=== PATIENT | male | born 1950 | race Caucasian/White ===

== ENCOUNTER 2021-05-05 16:45 | Inpatient (IN) ==
[2021-05-05] MEDS ORDERED: Melatonin 3 MG TABLET PO PRN (21:37)
[2021-05-05] MEDS ORDERED: Naloxone 0.4 MG/ML INJ IVP PRN (21:37)
[2021-05-05] MEDS ORDERED: 0.9 % Sodium Chloride 1,000 ML IVC SCH (22:30)
[2021-05-05 23:30] LABS: BUN/Creatinine Ratio 14 (6-26); Blood Urea Nitrogen 16 mg/dL (8-23); Calcium 8.4 mg/dL (8.6-10.3); Carbon Dioxide 23 mEq/L (23-29); Chloride 98 mEq/L (98-107); Glucose 199 mg/dL (70-105); Osmolality,Calculated 273 (280-300); Sodium 128 mEq/L (136-145); eGFR For African Americans > 60 (> 60); eGFR For Non-African Americans > 60 (> 60)
[2021-05-06] MEDS ORDERED: Ondansetron 4 MG/2 ML VIAL IVP PRN (00:13)
[2021-05-06 04:45] LABS: Hematocrit 32.9 % (37.5-50.1); Hemoglobin 11.2 g/dL (12.9-16.9); Mean Corpuscular Hemoglobin 30.5 pg (28.0-33.3); Mean Corpuscular Volume 89.6 fL (83.0-100.0); Mean Platelet Volume 9.4 fL (9.4-12.4); Platelet Count 135 K/mcL (140-400); Red Blood Count 3.67 M/mcL (4.19-5.50); Red Cell Distribution Width 14.9 % (11.5-14.5); White Blood Count 13.9 K/mcL (4.3-11.1)
[2021-05-06 04:51] LABS: INR 1.3; Prothrombin Time 14.9 Seconds (9.4-12.1)
[2021-05-06 05:04] LABS: BUN/Creatinine Ratio 14 (6-26); Blood Urea Nitrogen 17 mg/dL (8-23); Calcium 8.6 mg/dL (8.6-10.3); Carbon Dioxide 22 mEq/L (23-29); Chloride 98 mEq/L (98-107); Glucose 164 mg/dL (70-105); Magnesium 1.8 mg/dL (1.6-2.6); Osmolality,Calculated 273 (280-300); Potassium 3.8 mEq/L (3.5-5.1); Sodium 129 mEq/L (136-145); eGFR For African Americans > 60 (> 60); eGFR For Non-African Americans 57 (> 60)
[2021-05-06] MEDS ORDERED: *HR* Dextrose 50 % in Water (Syg) 50 ML SYRINGE IVP PRN (05:35)
[2021-05-06] MEDS ORDERED: Dextrose Gel 15 GM/37.5 ML TUBE PO PRN ×2 (05:35)
[2021-05-06] MEDS ORDERED: D5% in Water 1,000 ML IVC PRN (05:35)
[2021-05-06] MEDS: cefTRIAXone 1,000 MG in Water for inj. (sterile) 10 ML IVP SCH (06:16)
[2021-05-06 06:17] LABS: Influenza A PCR Negative (Negative); Influenza B PCR Negative (Negative); Resp. Syncytial Virus PCR Negative (Negative)
[2021-05-06] MEDS: Azithromycin 500 MG in 0.9 % Sodium Chloride 250 ML IVPB SCH (06:17)
[2021-05-06 06:18] LABS: SARS-CoV-2 by PCR (In House) Negative (Negative)
[2021-05-06] MEDS: Ipratropium/Albuterol Neb 3 ML IH SCH ×4 (06:19→21:22)
[2021-05-06] MEDS: Sucralfate 1 GM TABLET PO SCH ×3 (08:37→10:30)
[2021-05-06] MEDS: Finasteride 5 MG TABLET PO SCH ×2 (08:37→10:23)
[2021-05-06] MEDS: Insulin LISPRO 300 UNITS/3 ML VIAL SUBQ SCH ×3 (08:37→17:31)
[2021-05-06] MEDS ORDERED: *HR* HYDROmorphone (PF) 1 MG/ML SYRINGE IVP ONE (10:11)
[2021-05-06] MEDS: GuaiFENesin Liq 200 MG/10 ML UDC PO SCH ×3 (12:33→19:40)
[2021-05-06] MEDS: *HR* LORazepam 0.5 MG TABLET PO SCH ×2 (15:48→19:39)
[2021-05-06] MEDS ORDERED: Loratadine 10 MG TABLET PO SCH (21:00)
[2021-05-07] MEDS: Insulin LISPRO 300 UNITS/3 ML VIAL SUBQ SCH ×5 (00:55→23:31)
[2021-05-07] MEDS: Ipratropium/Albuterol Neb 3 ML IH SCH ×4 (03:49→22:37)
[2021-05-07 05:08] LABS: Basophils % 0.4 %; Eosinophils # 0.4 K/mcL (0.0-0.6); Eosinophils % 3.7 %; Hematocrit 29.6 % (37.5-50.1); Hemoglobin 9.8 g/dL (12.9-16.9); Immature Granulocytes % 0.5 % (0-4); Lymphocytes # 0.9 K/mcL (0.6-4.6); Lymphocytes % 8.7 %; Mean Corpuscular HGB Conc 33.1 g/dL (31.6-35.5); Mean Corpuscular Hemoglobin 30.2 pg (28.0-33.3); Mean Corpuscular Volume 91.4 fL (83.0-100.0); Mean Platelet Volume 9.6 fL (9.4-12.4); Monocytes # 1.2 K/mcL (0.0-1.3); Monocytes % 11.7 %; Neutrophils # 7.9 K/mcL (1.6-8.9); Platelet Count 120 K/mcL (140-400); Red Blood Count 3.24 M/mcL (4.19-5.50); Red Cell Distribution Width 15.1 % (11.5-14.5); White Blood Count 10.6 K/mcL (4.3-11.1)
[2021-05-07 05:24] LABS: BUN/Creatinine Ratio 16 (6-26); Blood Urea Nitrogen 19 mg/dL (8-23); Calcium 8.4 mg/dL (8.6-10.3); Carbon Dioxide 23 mEq/L (23-29); Chloride 101 mEq/L (98-107); Glucose 122 mg/dL (70-105); Osmolality,Calculated 274 (280-300); Potassium 3.6 mEq/L (3.5-5.1); Sodium 130 mEq/L (136-145); eGFR For African Americans > 60 (> 60); eGFR For Non-African Americans 58 (> 60)
[2021-05-07] MEDS: cefTRIAXone 1,000 MG in Water for inj. (sterile) 10 ML IVP SCH (05:27)
[2021-05-07] MEDS: Azithromycin 500 MG in 0.9 % Sodium Chloride 250 ML IVPB SCH (05:28)
[2021-05-07] MEDS: Finasteride 5 MG TABLET PO SCH (08:53)
[2021-05-07] MEDS: *HR* LORazepam 0.5 MG TABLET PO SCH ×3 (08:53→21:40)
[2021-05-07] MEDS: GuaiFENesin Liq 200 MG/10 ML UDC PO SCH ×4 (08:54→21:40)
[2021-05-07] MEDS ORDERED: lisinopriL 5 MG TABLET PO SCH (09:00)
[2021-05-07] MEDS ORDERED: amLODIPine 5 MG TABLET PO SCH (09:00)
[2021-05-07] MEDS ORDERED: *HR* FentaNYL (PF) 100 MCG/2 ML VIAL ONE (10:50)
[2021-05-07] MEDS ORDERED: *HR* Propofol 200 MG/20 ML VIAL IVP ONE (10:51)
[2021-05-07] MEDS ORDERED: Lidocaine -MPF 2% 5 ML VIAL ONE (12:56)
[2021-05-07] MEDS ORDERED: Ondansetron 4 MG/2 ML VIAL ONE (12:56)
[2021-05-07] MEDS ORDERED: *HR* Succinylcholine 200 MG/10 ML VIAL IVP ONE (12:56)
[2021-05-07] MEDS ORDERED: Clindamycin 900 MG/50 ML 900 MG/50 ML IV.SOLN IVPB ONE (13:55)
[2021-05-07] MEDS ORDERED: Acetaminophen IV 1,000 MG/100 ML BAG IVPB ONE ×2 (13:56→14:16)
[2021-05-07] MEDS ORDERED: *HR* FentaNYL (PF) 100 MCG/2 ML VIAL IVP PRN ×2 (13:57→17:56)
[2021-05-07] MEDS ORDERED: EPHEDrine 50 MG/ML VIAL ONE (14:32)
[2021-05-07] MEDS ORDERED: Albuterol 2.5 MG/3 ML NEBULIZER ONE (15:42)
[2021-05-07] MEDS ORDERED: *HR* Dextrose 50 % in Water (Syg) 50 ML SYRINGE IVP PRN (17:56)
[2021-05-07] MEDS ORDERED: Dextrose Gel 15 GM/37.5 ML TUBE PO PRN ×2 (17:56)
[2021-05-07] MEDS ORDERED: D5% in Water 1,000 ML IVC PRN (17:56)
[2021-05-07] MEDS ORDERED: Naloxone 0.4 MG/ML INJ IVP PRN (17:56)
[2021-05-07] MEDS ORDERED: Clindamycin 900 MG/50 ML 900 MG/50 ML IV.SOLN IVPB SCH (21:00)
[2021-05-07] MEDS: Loratadine 10 MG TABLET PO SCH (21:39)
[2021-05-07] MEDS: Clindamycin 900 MG/50 ML 900 MG/50 ML IV.SOLN IVPB SCH (21:40)
[2021-05-07] MEDS ORDERED: 0.9 % Sodium Chloride 1,000 ML IVC ONE (22:10)
[2021-05-07] MEDS: Acetaminophen 325 MG TABLET PO PRN (22:36)
[2021-05-08 02:09] LABS: ABG Base Excess -2 mEq/L (-2 to 3); ABG HCO3 23 mEq/L (21-27); ABG Oxygen Saturation 87 % (95-98); ABG PCO2 37 mmHg (35-45); ABG PO2 52 mmHg (85-104); ABG TCO2 24 mEq/L (20-26)
[2021-05-08] MEDS: Ipratropium/Albuterol Neb 3 ML IH SCH ×4 (04:01→19:38)
[2021-05-08 05:09] LABS: Basophils % 0.3 %; Eosinophils # 0.3 K/mcL (0.0-0.6); Eosinophils % 2.8 %; Hematocrit 25.4 % (37.5-50.1); Immature Granulocytes % 0.5 % (0-4); Lymphocytes # 0.5 K/mcL (0.6-4.6); Lymphocytes % 5.8 %; Mean Corpuscular HGB Conc 32.3 g/dL (31.6-35.5); Mean Corpuscular Hemoglobin 29.7 pg (28.0-33.3); Mean Platelet Volume 9.8 fL (9.4-12.4); Monocytes # 1.1 K/mcL (0.0-1.3); Neutrophils # 6.8 K/mcL (1.6-8.9); Platelet Count 105 K/mcL (140-400); Red Blood Count 2.76 M/mcL (4.19-5.50); Red Cell Distribution Width 15.1 % (11.5-14.5); Segmented Neutrophils % 77.6 %; White Blood Count 8.8 K/mcL (4.3-11.1)
[2021-05-08 05:16] LABS: Hemoglobin 8.2 g/dL (12.9-16.9)
[2021-05-08 05:20] LABS: BUN/Creatinine Ratio 20 (6-26); Blood Urea Nitrogen 18 mg/dL (8-23); Carbon Dioxide 24 mEq/L (23-29); Chloride 101 mEq/L (98-107); Glucose 189 mg/dL (70-105); Osmolality,Calculated 279 (280-300); Potassium 3.6 mEq/L (3.5-5.1); Sodium 131 mEq/L (136-145); eGFR For African Americans > 60 (> 60); eGFR For Non-African Americans > 60 (> 60)
[2021-05-08] MEDS: Clindamycin 900 MG/50 ML 900 MG/50 ML IV.SOLN IVPB SCH (05:24)
[2021-05-08] MEDS: cefTRIAXone 1,000 MG in Water for inj. (sterile) 10 ML IVP SCH (05:27)
[2021-05-08] MEDS: Insulin LISPRO 300 UNITS/3 ML VIAL SUBQ SCH ×3 (05:57→16:54)
[2021-05-08] MEDS: Acetaminophen 325 MG TABLET PO PRN (07:14)
[2021-05-08] MEDS: GuaiFENesin Liq 200 MG/10 ML UDC PO SCH ×4 (08:12→20:54)
[2021-05-08] MEDS: Aspirin Enteric Coated 325 MG Tablet PO SCH (08:13)
[2021-05-08] MEDS: Finasteride 5 MG TABLET PO SCH (08:13)
[2021-05-08] MEDS: *HR* LORazepam 0.5 MG TABLET PO SCH ×2 (08:13→16:17)
[2021-05-08] MEDS ORDERED: amLODIPine 5 MG TABLET PO SCH (09:00)
[2021-05-08] MEDS ORDERED: Aspirin Enteric Coated 325 MG Tablet PO SCH (09:00)
[2021-05-08] MEDS ORDERED: lisinopriL 5 MG TABLET PO SCH (09:00)
[2021-05-08] MEDS ORDERED: metroNIDAZOLE 500 MG TABLET PO SCH (15:00)
[2021-05-08] MEDS ORDERED: Acetaminophen IV 1,000 MG/100 ML BAG IVPB ONE (15:02)
[2021-05-08] MEDS: MetroNIDAZOLE 500 MG/100 ML 500 MG/100 ML BAG IVPB SCH ×2 (16:22→23:35)
[2021-05-08] MEDS ORDERED: *HR* LORazepam 0.5 MG TABLET PO ONE (18:50)
[2021-05-08] MEDS: Melatonin 3 MG TABLET PO PRN (19:02)
[2021-05-08] MEDS: Loratadine 10 MG TABLET PO SCH (20:54)
[2021-05-08] MEDS ORDERED: Doxycycline 100 MG CAPSULE PO SCH (21:00)
[2021-05-09] MEDS: Insulin LISPRO 300 UNITS/3 ML VIAL SUBQ SCH ×4 (01:02→17:25)
[2021-05-09] MEDS: Ipratropium/Albuterol Neb 3 ML IH SCH ×4 (04:31→22:07)
[2021-05-09 04:58] LABS: Hematocrit 23.1 % (37.5-50.1); Hemoglobin 7.7 g/dL (12.9-16.9); Mean Corpuscular HGB Conc 33.3 g/dL (31.6-35.5); Mean Corpuscular Hemoglobin 30.2 pg (28.0-33.3); Mean Corpuscular Volume 90.6 fL (83.0-100.0); Mean Platelet Volume 10.1 fL (9.4-12.4); Platelet Count 122 K/mcL (140-400); Red Blood Count 2.55 M/mcL (4.19-5.50); White Blood Count 7.2 K/mcL (4.3-11.1)
[2021-05-09 05:17] LABS: BUN/Creatinine Ratio 19 (6-26); Blood Urea Nitrogen 16 mg/dL (8-23); Calcium 7.9 mg/dL (8.6-10.3); Carbon Dioxide 24 mEq/L (23-29); Chloride 101 mEq/L (98-107); Glucose 182 mg/dL (70-105); Osmolality,Calculated 278 (280-300); Potassium 3.5 mEq/L (3.5-5.1); Sodium 131 mEq/L (136-145); eGFR For African Americans > 60 (> 60); eGFR For Non-African Americans > 60 (> 60)
[2021-05-09] MEDS: Acetaminophen 325 MG TABLET PO PRN ×2 (06:43→15:47)
[2021-05-09] MEDS: cefTRIAXone 1,000 MG in Water for inj. (sterile) 10 ML IVP SCH (06:43)
[2021-05-09] MEDS ORDERED: Isovue-370 500 ML BOTTLE IVP ONE (07:30)
[2021-05-09] MEDS: Finasteride 5 MG TABLET PO SCH (07:46)
[2021-05-09] MEDS: Aspirin Enteric Coated 325 MG Tablet PO SCH (07:46)
[2021-05-09] MEDS: MetroNIDAZOLE 500 MG/100 ML 500 MG/100 ML BAG IVPB SCH ×2 (07:47→15:46)
[2021-05-09] MEDS: GuaiFENesin Liq 200 MG/10 ML UDC PO SCH ×4 (07:55→20:54)
[2021-05-09] MEDS: levoFLOXacin 750 MG/150 ML 750 MG/150 ML BAG IVPB SCH (08:09)
[2021-05-09] MEDS: Vancomycin 1,250 MG/262.5 ML IV.SOLN IVPB SCH (17:56)
[2021-05-09] MEDS: Loratadine 10 MG TABLET PO SCH (20:52)
[2021-05-09] MEDS: *HR* LORazepam 0.5 MG TABLET PO PRN (21:02)
[2021-05-09] MEDS: Melatonin 3 MG TABLET PO PRN (21:02)
[2021-05-10] MEDS: Insulin LISPRO 300 UNITS/3 ML VIAL SUBQ SCH ×4 (00:30→17:42)
[2021-05-10] MEDS: MetroNIDAZOLE 500 MG/100 ML 500 MG/100 ML BAG IVPB SCH ×2 (01:16→07:42)
[2021-05-10] MEDS: Ipratropium/Albuterol Neb 3 ML IH SCH ×4 (03:53→20:29)
[2021-05-10 04:58] LABS: Hematocrit 21.4 % (37.5-50.1); Hemoglobin 7.3 g/dL (12.9-16.9); Mean Corpuscular HGB Conc 34.1 g/dL (31.6-35.5); Mean Corpuscular Hemoglobin 30.8 pg (28.0-33.3); Mean Corpuscular Volume 90.3 fL (83.0-100.0); Mean Platelet Volume 10.1 fL (9.4-12.4); Platelet Count 118 K/mcL (140-400); Red Blood Count 2.37 M/mcL (4.19-5.50); Red Cell Distribution Width 14.9 % (11.5-14.5); White Blood Count 6.3 K/mcL (4.3-11.1)
[2021-05-10 05:17] LABS: BUN/Creatinine Ratio 18 (6-26); Blood Urea Nitrogen 13 mg/dL (8-23); Calcium 7.9 mg/dL (8.6-10.3); Carbon Dioxide 26 mEq/L (23-29); Chloride 100 mEq/L (98-107); Glucose 187 mg/dL (70-105); Osmolality,Calculated 277 (280-300); Potassium 3.3 mEq/L (3.5-5.1); Sodium 131 mEq/L (136-145); eGFR For African Americans > 60 (> 60); eGFR For Non-African Americans > 60 (> 60)
[2021-05-10] MEDS: Vancomycin 1,250 MG/262.5 ML IV.SOLN IVPB SCH ×2 (05:26→16:52)
[2021-05-10] MEDS: Finasteride 5 MG TABLET PO SCH (07:41)
[2021-05-10] MEDS: Aspirin Enteric Coated 325 MG Tablet PO SCH (07:41)
[2021-05-10] MEDS: GuaiFENesin Liq 200 MG/10 ML UDC PO SCH ×4 (07:41→20:03)
[2021-05-10] MEDS: levoFLOXacin 750 MG/150 ML 750 MG/150 ML BAG IVPB SCH (07:42)
[2021-05-10 09:57] LABS: Iron 13 mcg/dL (65-175)
[2021-05-10] MEDS: *HR* LORazepam 0.5 MG TABLET PO PRN ×2 (10:17→18:05)
[2021-05-10 10:33] LABS: Ferritin 235 ng/mL (20-250)
[2021-05-10] MEDS: Ondansetron 4 MG/2 ML VIAL IVP PRN (13:16)
[2021-05-10 14:26] LABS: % Iron Saturation 6 % (20-55); Transferrin 147 mg/dL (203-362)
[2021-05-10] MEDS: metroNIDAZOLE 500 MG TABLET PO SCH ×2 (16:15→20:03)
[2021-05-10] MEDS: Loratadine 10 MG TABLET PO SCH (20:03)
[2021-05-10] MEDS: Melatonin 3 MG TABLET PO PRN (20:04)
[2021-05-11] MEDS: *HR* LORazepam 0.5 MG TABLET PO PRN ×3 (04:25→21:26)
[2021-05-11 04:44] LABS: Hemoglobin 6.7 g/dL (12.9-16.9); Mean Corpuscular HGB Conc 33.5 g/dL (31.6-35.5); Mean Corpuscular Volume 89.7 fL (83.0-100.0); Mean Platelet Volume 9.9 fL (9.4-12.4); Platelet Count 140 K/mcL (140-400); Red Blood Count 2.23 M/mcL (4.19-5.50); Red Cell Distribution Width 14.9 % (11.5-14.5); White Blood Count 5.6 K/mcL (4.3-11.1)
[2021-05-11] MEDS: Ipratropium/Albuterol Neb 3 ML IH SCH ×4 (04:51→22:11)
[2021-05-11 05:00] LABS: BUN/Creatinine Ratio 21 (6-26); Blood Urea Nitrogen 16 mg/dL (8-23); Carbon Dioxide 26 mEq/L (23-29); Chloride 98 mEq/L (98-107); Glucose 146 mg/dL (70-105); Osmolality,Calculated 274 (280-300); Potassium 3.3 mEq/L (3.5-5.1); Sodium 130 mEq/L (136-145); eGFR For African Americans > 60 (> 60); eGFR For Non-African Americans > 60 (> 60)
[2021-05-11] MEDS: Vancomycin 1,500 MG/265 ML IV.SOLN IVPB SCH ×2 (05:38→21:53)
[2021-05-11] MEDS: Aspirin Enteric Coated 325 MG Tablet PO SCH (07:27)
[2021-05-11] MEDS: GuaiFENesin Liq 200 MG/10 ML UDC PO SCH ×4 (07:27→21:14)
[2021-05-11] MEDS: Finasteride 5 MG TABLET PO SCH (07:28)
[2021-05-11] MEDS: levoFLOXacin 750 MG/150 ML 750 MG/150 ML BAG IVPB SCH (07:28)
[2021-05-11] MEDS: metroNIDAZOLE 500 MG TABLET PO SCH ×3 (07:28→21:14)
[2021-05-11] MEDS: Iron Sucrose Complex 250 MG in 0.9 % Sodium Chloride 250 ML IVPB SCH (09:22)
[2021-05-11] MEDS ORDERED: 0.9 % Sodium Chloride 250 ML ONE (09:47)
[2021-05-11 15:55] LABS: Hematocrit 27.1 % (37.5-50.1)
[2021-05-11 15:57] LABS: Hemoglobin 9.1 g/dL (12.9-16.9)
[2021-05-11] MEDS: Loratadine 10 MG TABLET PO SCH (21:26)
[2021-05-11] MEDS: Melatonin 3 MG TABLET PO PRN (21:26)
[2021-05-12] MEDS: Ipratropium/Albuterol Neb 3 ML IH SCH ×4 (03:34→20:33)
[2021-05-12] MEDS: GuaiFENesin Liq 200 MG/10 ML UDC PO SCH ×4 (08:35→20:28)
[2021-05-12] MEDS: metroNIDAZOLE 500 MG TABLET PO SCH ×3 (08:35→20:25)
[2021-05-12] MEDS: Aspirin Enteric Coated 325 MG Tablet PO SCH (08:35)
[2021-05-12] MEDS: Finasteride 5 MG TABLET PO SCH (08:35)
[2021-05-12] MEDS: levoFLOXacin 750 MG/150 ML 750 MG/150 ML BAG IVPB SCH (08:36)
[2021-05-12] MEDS: *HR* LORazepam 0.5 MG TABLET PO PRN ×2 (08:41→20:27)
[2021-05-12] MEDS: Vancomycin 1,500 MG/265 ML IV.SOLN IVPB SCH (08:41)
[2021-05-12 08:43] LABS: Hematocrit 25.9 % (37.5-50.1); Hemoglobin 8.7 g/dL (12.9-16.9); Mean Corpuscular HGB Conc 33.6 g/dL (31.6-35.5); Mean Corpuscular Hemoglobin 30.5 pg (28.0-33.3); Mean Corpuscular Volume 90.9 fL (83.0-100.0); Mean Platelet Volume 9.6 fL (9.4-12.4); Platelet Count 172 K/mcL (140-400); Red Blood Count 2.85 M/mcL (4.19-5.50); White Blood Count 5.9 K/mcL (4.3-11.1)
[2021-05-12] MEDS ORDERED: *HR* Methotrexate 2.5 MG TABLET PO SCH ×2 (09:00)
[2021-05-12 09:44] LABS: BUN/Creatinine Ratio 25 (6-26); Blood Urea Nitrogen 17 mg/dL (8-23); Calcium 8.2 mg/dL (8.6-10.3); Carbon Dioxide 25 mEq/L (23-29); Chloride 98 mEq/L (98-107); Glucose 137 mg/dL (70-105); Osmolality,Calculated 272 (280-300); Potassium 3.7 mEq/L (3.5-5.1); Sodium 129 mEq/L (136-145); eGFR For African Americans > 60 (> 60); eGFR For Non-African Americans > 60 (> 60)
[2021-05-12] MEDS: Iron Sucrose Complex 250 MG in 0.9 % Sodium Chloride 250 ML IVPB SCH (11:46)
[2021-05-12] MEDS: Loratadine 10 MG TABLET PO SCH (20:25)
[2021-05-12] MEDS: Melatonin 3 MG TABLET PO PRN (20:26)
[2021-05-12] MEDS: Doxycycline 100 MG CAPSULE PO SCH (20:27)
[2021-05-13] MEDS: Ipratropium/Albuterol Neb 3 ML IH SCH ×4 (05:04→21:03)
[2021-05-13 06:03] LABS: Hematocrit 23.9 % (37.5-50.1); Mean Corpuscular HGB Conc 33.5 g/dL (31.6-35.5); Mean Corpuscular Hemoglobin 30.1 pg (28.0-33.3); Mean Corpuscular Volume 89.8 fL (83.0-100.0); Mean Platelet Volume 9.6 fL (9.4-12.4); Platelet Count 184 K/mcL (140-400); Red Blood Count 2.66 M/mcL (4.19-5.50); Red Cell Distribution Width 14.9 % (11.5-14.5); White Blood Count 6.6 K/mcL (4.3-11.1)
[2021-05-13 06:32] LABS: BUN/Creatinine Ratio 24 (6-26); Blood Urea Nitrogen 16 mg/dL (8-23); Calcium 7.9 mg/dL (8.6-10.3); Carbon Dioxide 25 mEq/L (23-29); Chloride 98 mEq/L (98-107); Glucose 163 mg/dL (70-105); Osmolality,Calculated 271 (280-300); Potassium 3.4 mEq/L (3.5-5.1); Sodium 128 mEq/L (136-145); eGFR For African Americans > 60 (> 60); eGFR For Non-African Americans > 60 (> 60)
[2021-05-13] MEDS: Aspirin Enteric Coated 325 MG Tablet PO SCH (08:05)
[2021-05-13] MEDS: metroNIDAZOLE 500 MG TABLET PO SCH ×3 (08:05→20:59)
[2021-05-13] MEDS: Finasteride 5 MG TABLET PO SCH (08:05)
[2021-05-13] MEDS: levoFLOXacin 750 MG TABLET PO SCH (08:05)
[2021-05-13] MEDS: Doxycycline 100 MG CAPSULE PO SCH ×2 (08:05→20:59)
[2021-05-13] MEDS: Iron Sucrose Complex 250 MG in 0.9 % Sodium Chloride 250 ML IVPB SCH (08:20)
[2021-05-13] MEDS: GuaiFENesin Liq 200 MG/10 ML UDC PO SCH ×4 (09:17→21:00)
[2021-05-13] MEDS: *HR* LORazepam 0.5 MG TABLET PO PRN ×2 (09:17→17:35)
[2021-05-13] MEDS: Loratadine 10 MG TABLET PO SCH (20:59)
[2021-05-13] MEDS: Melatonin 3 MG TABLET PO PRN (21:00)
[2021-05-13] MEDS: Benzonatate 100 MG CAPSULE PO PRN (23:41)
[2021-05-14] MEDS: Ondansetron 4 MG/2 ML VIAL IVP PRN ×3 (01:30→23:39)
[2021-05-14 02:31] LABS: Hematocrit 26.1 % (37.5-50.1); Hemoglobin 8.6 g/dL (12.9-16.9); Mean Corpuscular Hemoglobin 29.6 pg (28.0-33.3); Mean Corpuscular Volume 89.7 fL (83.0-100.0); Mean Platelet Volume 9.3 fL (9.4-12.4); Platelet Count 210 K/mcL (140-400); Red Blood Count 2.91 M/mcL (4.19-5.50); White Blood Count 8.2 K/mcL (4.3-11.1)
[2021-05-14 03:16] LABS: BUN/Creatinine Ratio 19 (6-26); Blood Urea Nitrogen 13 mg/dL (8-23); Calcium 7.9 mg/dL (8.6-10.3); Carbon Dioxide 22 mEq/L (23-29); Chloride 96 mEq/L (98-107); Glucose 172 mg/dL (70-105); Osmolality,Calculated 266 (280-300); Potassium 4.2 mEq/L (3.5-5.1); Sodium 126 mEq/L (136-145); eGFR For African Americans > 60 (> 60); eGFR For Non-African Americans > 60 (> 60)
[2021-05-14 03:27] LABS: Adenovirus Not Detected (Not Detect); Bordetella Pertussis Not Detected (Not Detect); Chlamydophila pneumoniae Not Detected (Not Detect); Coronavirus 229E Not Detected (Not Detect); Coronavirus HKU1 Not Detected (Not Detect); Coronavirus NL63 Not Detected (Not Detect); Coronavirus OC43 Not Detected (Not Detect); Human Metapneumovirus Not Detected (Not Detect); Human Rhinovirus/Enterovirus Not Detected (Not Detect); Influenza A Subtype 2009 H1 Not Detected (Not Detect); Influenza B Not Detected (Not Detect); Mycoplasma pneumoniae Not Detected (Not Detect); Parainfluenza Virus 1 Not Detected (Not Detect); Parainfluenza Virus 2 Not Detected (Not Detect); Parainfluenza Virus 3 Not Detected (Not Detect); Parainfluenza Virus 4 Not Detected (Not Detect); Respiratory Syncytial Virus Not Detected (Not Detect); SARS-CoV-2 Not Detected (Not Detect)
[2021-05-14] MEDS: Ipratropium/Albuterol Neb 3 ML IH SCH ×4 (03:53→22:20)
[2021-05-14] MEDS: *HR* LORazepam 0.5 MG TABLET PO PRN (05:14)
[2021-05-14 06:25] LABS: Bilirubin,Urine Negative (Negative); Blood,Urine Negative (Negative); Clarity,Urine Clear (Clear); Color,Urine Yellow (Yellow); Glucose,Urine (UA) 200 mg/dL (Normal); Ketones,Urine 10 mg/dL (Negative); Leukocyte Esterase,Urine Negative (Negative); Mucus,Urine Few per lpf (None-Few); Nitrite,Urine Negative (Negative); PH,Urine 6.5 pH Units (5.0-8.0); Protein,Urine Trace mg/dL (Neg-Trace); RBC,Urine 0-3 per hpf (0-3); Specific Gravity,Urine 1.015 (1.010-1.025); Urobilinogen,Urine Normal (Normal); WBC,Urine 0-3 per hpf (0-3)
[2021-05-14] MEDS: levoFLOXacin 750 MG TABLET PO SCH (08:10)
[2021-05-14] MEDS: metroNIDAZOLE 500 MG TABLET PO SCH ×3 (08:10→20:54)
[2021-05-14] MEDS: Doxycycline 100 MG CAPSULE PO SCH (08:10)
[2021-05-14] MEDS: GuaiFENesin Liq 200 MG/10 ML UDC PO SCH ×4 (08:11→20:54)
[2021-05-14] MEDS: Finasteride 5 MG TABLET PO SCH (08:11)
[2021-05-14] MEDS: Iron Sucrose Complex 250 MG in 0.9 % Sodium Chloride 250 ML IVPB SCH (08:11)
[2021-05-14] MEDS: Aspirin Enteric Coated 325 MG Tablet PO SCH (08:11)
[2021-05-14] MEDS: Furosemide 20 MG/2 ML VIAL IVP SCH (10:17)
[2021-05-14] MEDS ORDERED: Perflutren Lipid Microsphere 1.3 ML in 0.9 % Sodium Chloride 8.7 ML IVP PRN (12:00)
[2021-05-14] MEDS: Loratadine 10 MG TABLET PO SCH (20:53)
[2021-05-14] MEDS: Benzonatate 100 MG CAPSULE PO PRN (20:53)
[2021-05-15] MEDS: *HR* LORazepam 0.5 MG TABLET PO PRN ×3 (02:58→21:02)
[2021-05-15] MEDS: Ipratropium/Albuterol Neb 3 ML IH SCH ×4 (03:41→20:53)
[2021-05-15 05:37] LABS: BUN/Creatinine Ratio 16 (6-26); Blood Urea Nitrogen 11 mg/dL (8-23); Calcium 7.9 mg/dL (8.6-10.3); Carbon Dioxide 25 mEq/L (23-29); Chloride 96 mEq/L (98-107); Glucose 167 mg/dL (70-105); Osmolality,Calculated 269 (280-300); Potassium 3.3 mEq/L (3.5-5.1); Sodium 128 mEq/L (136-145); eGFR For African Americans > 60 (> 60); eGFR For Non-African Americans > 60 (> 60)
[2021-05-15] MEDS: Finasteride 5 MG TABLET PO SCH (09:40)
[2021-05-15] MEDS: Aspirin Enteric Coated 325 MG Tablet PO SCH (09:40)
[2021-05-15] MEDS: levoFLOXacin 750 MG TABLET PO SCH (09:40)
[2021-05-15] MEDS: Iron Sucrose Complex 250 MG in 0.9 % Sodium Chloride 250 ML IVPB SCH (09:41)
[2021-05-15] MEDS: metroNIDAZOLE 500 MG TABLET PO SCH ×3 (09:41→20:54)
[2021-05-15] MEDS: Furosemide 20 MG/2 ML VIAL IVP SCH (09:41)
[2021-05-15] MEDS: GuaiFENesin Liq 200 MG/10 ML UDC PO SCH ×4 (09:42→20:55)
[2021-05-15] MEDS: Ondansetron 4 MG/2 ML VIAL IVP PRN ×2 (10:08→20:51)
[2021-05-15] MEDS ORDERED: GI Cocktail 40 ML EACH PO ONE (11:14)
[2021-05-15 12:42] LABS: Thyroid Stimulating Hormone 0.513 mcIU/mL (0.340-5.600)
[2021-05-15] MEDS ORDERED: Furosemide 20 MG/2 ML VIAL IVP ONE (12:43)
[2021-05-15] MEDS: hydrALAZINE 25 MG TABLET PO SCH (16:59)
[2021-05-15] MEDS: Loratadine 10 MG TABLET PO SCH (20:55)
[2021-05-16] MEDS: hydrALAZINE 25 MG TABLET PO SCH ×4 (00:09→23:13)
[2021-05-16] MEDS: Benzonatate 100 MG CAPSULE PO PRN (02:03)
[2021-05-16] MEDS ORDERED: *HR* Promethazine 25 MG/ML VIAL IM ONE (02:41)
[2021-05-16] MEDS: Ipratropium/Albuterol Neb 3 ML IH SCH ×4 (03:20→23:13)
[2021-05-16 03:41] LABS: Hematocrit 27.9 % (37.5-50.1); Hemoglobin 9.4 g/dL (12.9-16.9); Mean Corpuscular HGB Conc 33.7 g/dL (31.6-35.5); Mean Corpuscular Hemoglobin 30.6 pg (28.0-33.3); Mean Corpuscular Volume 90.9 fL (83.0-100.0); Red Blood Count 3.07 M/mcL (4.19-5.50); Red Cell Distribution Width 15.6 % (11.5-14.5); White Blood Count 7.7 K/mcL (4.3-11.1)
[2021-05-16 03:42] LABS: Basophils # 0.1 K/mcL (0.0-0.2); Basophils % 0.6 %; Eosinophils # 0.4 K/mcL (0.0-0.6); Eosinophils % 5.3 %; Lymphocytes # 0.9 K/mcL (0.6-4.6); Lymphocytes % 11.5 %; Mean Platelet Volume 9.4 fL (9.4-12.4); Monocytes # 0.9 K/mcL (0.0-1.3); Monocytes % 11.8 %; Neutrophils # 5.4 K/mcL (1.6-8.9); Platelet Count 250 K/mcL (140-400); Segmented Neutrophils % 69.8 %
[2021-05-16 04:00] LABS: Albumin 2.9 g/dL (3.5-5.7); BUN/Creatinine Ratio 13 (6-26); Blood Urea Nitrogen 9 mg/dL (8-23); Carbon Dioxide 26 mEq/L (23-29); Chloride 94 mEq/L (98-107); Glucose 156 mg/dL (70-105); Magnesium 1.7 mg/dL (1.6-2.6); Osmolality,Calculated 262 (280-300); Potassium 3.5 mEq/L (3.5-5.1); Sodium 125 mEq/L (136-145); Uric Acid 2.7 mg/dL (2.3-7.6); eGFR For African Americans > 60 (> 60); eGFR For Non-African Americans > 60 (> 60)
[2021-05-16] MEDS ORDERED: OMEPRAZOLE MAGNESIUM 20 MG PO SCH (09:00)
[2021-05-16] MEDS: levoFLOXacin 750 MG TABLET PO SCH (09:20)
[2021-05-16] MEDS: Finasteride 5 MG TABLET PO SCH (09:20)
[2021-05-16] MEDS: metroNIDAZOLE 500 MG TABLET PO SCH ×3 (09:20→20:22)
[2021-05-16] MEDS: Aspirin Enteric Coated 325 MG Tablet PO SCH (09:20)
[2021-05-16] MEDS: GuaiFENesin Liq 200 MG/10 ML UDC PO SCH ×4 (09:20→20:26)
[2021-05-16] MEDS: *HR* LORazepam 0.5 MG TABLET PO PRN ×2 (09:33→20:23)
[2021-05-16] MEDS: NIFEdipine XL (24 HR) 60 MG TAB.ER.24 PO SCH (15:36)
[2021-05-16 20:20] LABS: BUN/Creatinine Ratio 11 (6-26); Blood Urea Nitrogen 9 mg/dL (8-23); Calcium 8.2 mg/dL (8.6-10.3); Carbon Dioxide 22 mEq/L (23-29); Chloride 100 mEq/L (98-107); Glucose 203 mg/dL (70-105); Osmolality,Calculated 274 (280-300); Potassium 3.4 mEq/L (3.5-5.1); Sodium 130 mEq/L (136-145); eGFR For African Americans > 60 (> 60); eGFR For Non-African Americans > 60 (> 60)
[2021-05-16] MEDS: Loratadine 10 MG TABLET PO SCH (20:22)
[2021-05-16] MEDS: Ondansetron 4 MG/2 ML VIAL IVP PRN (20:29)
[2021-05-16] MEDS: Acetaminophen 325 MG TABLET PO PRN (23:13)
[2021-05-16] MEDS: Melatonin 3 MG TABLET PO PRN (23:13)
[2021-05-17 03:02] LABS: BUN/Creatinine Ratio 9 (6-26); Blood Urea Nitrogen 8 mg/dL (8-23); Calcium 8.1 mg/dL (8.6-10.3); Carbon Dioxide 26 mEq/L (23-29); Chloride 101 mEq/L (98-107); Glucose 184 mg/dL (70-105); Osmolality,Calculated 277 (280-300); Potassium 3.5 mEq/L (3.5-5.1); Sodium 132 mEq/L (136-145); eGFR For African Americans > 60 (> 60); eGFR For Non-African Americans > 60 (> 60)
[2021-05-17] MEDS: Ipratropium/Albuterol Neb 3 ML IH SCH ×4 (04:10→20:35)
[2021-05-17] MEDS: Ondansetron 4 MG/2 ML VIAL IVP PRN (07:52)
[2021-05-17] MEDS: GuaiFENesin Liq 200 MG/10 ML UDC PO SCH ×4 (07:52→20:11)
[2021-05-17] MEDS: metroNIDAZOLE 500 MG TABLET PO SCH ×3 (07:53→20:10)
[2021-05-17] MEDS: Aspirin Enteric Coated 325 MG Tablet PO SCH (07:53)
[2021-05-17] MEDS: levoFLOXacin 750 MG TABLET PO SCH (07:53)
[2021-05-17] MEDS: hydrALAZINE 25 MG TABLET PO SCH ×3 (07:53→23:35)
[2021-05-17] MEDS: NIFEdipine XL (24 HR) 60 MG TAB.ER.24 PO SCH (07:53)
[2021-05-17] MEDS: Finasteride 5 MG TABLET PO SCH (07:53)
[2021-05-17] MEDS: *HR* LORazepam 0.5 MG TABLET PO PRN ×3 (08:08→23:35)
[2021-05-17] MEDS: Acetaminophen 325 MG TABLET PO PRN (15:19)
[2021-05-17] MEDS ORDERED: Saliva Stimulant 44.3ml BOTTLE PO PRN (17:01)
[2021-05-17 17:16] LABS: BUN/Creatinine Ratio 12 (6-26); Blood Urea Nitrogen 10 mg/dL (8-23); Calcium 8.4 mg/dL (8.6-10.3); Carbon Dioxide 25 mEq/L (23-29); Chloride 101 mEq/L (98-107); Glucose 243 mg/dL (70-105); Osmolality,Calculated 281 (280-300); Potassium 3.5 mEq/L (3.5-5.1); Sodium 132 mEq/L (136-145); eGFR For African Americans > 60 (> 60); eGFR For Non-African Americans > 60 (> 60)
[2021-05-17] MEDS: Loratadine 10 MG TABLET PO SCH (20:10)
[2021-05-17] MEDS ORDERED: Mirtazapine 15 MG TABLET PO SCH (21:00)
[2021-05-18] MEDS: Melatonin 3 MG TABLET PO PRN (00:25)
[2021-05-18] MEDS: Ipratropium/Albuterol Neb 3 ML IH SCH ×3 (04:33→15:13)
[2021-05-18] MEDS ORDERED: *HR* Propofol 200 MG/20 ML VIAL IVP ONE (08:14)
[2021-05-18] MEDS ORDERED: Lidocaine -MPF 2% 5 ML VIAL ONE (08:14)
[2021-05-18] MEDS: levoFLOXacin 750 MG TABLET PO SCH (10:41)
[2021-05-18] MEDS: Aspirin Enteric Coated 325 MG Tablet PO SCH (10:41)
[2021-05-18] MEDS: NIFEdipine XL (24 HR) 60 MG TAB.ER.24 PO SCH (10:42)
[2021-05-18] MEDS: metroNIDAZOLE 500 MG TABLET PO SCH ×2 (10:42→16:39)
[2021-05-18] MEDS: GuaiFENesin Liq 200 MG/10 ML UDC PO SCH ×3 (10:42→16:39)
[2021-05-18] MEDS: Finasteride 5 MG TABLET PO SCH (11:00)
[2021-05-18] MEDS: *HR* LORazepam 0.5 MG TABLET PO PRN (11:00)
[2021-05-18] MEDS: hydrALAZINE 25 MG TABLET PO SCH ×2 (11:12→16:40)
[2021-05-18 11:17] LABS: Basophils # 0.1 K/mcL (0.0-0.2); Basophils % 0.9 %; Eosinophils # 0.4 K/mcL (0.0-0.6); Eosinophils % 4.5 %; Hematocrit 32.1 % (37.5-50.1); Immature Granulocytes % 0.6 % (0-4); Lymphocytes # 0.9 K/mcL (0.6-4.6); Lymphocytes % 11.7 %; Mean Corpuscular HGB Conc 31.2 g/dL (31.6-35.5); Mean Corpuscular Hemoglobin 29.6 pg (28.0-33.3); Mean Platelet Volume 8.9 fL (9.4-12.4); Monocytes # 0.8 K/mcL (0.0-1.3); Monocytes % 9.7 %; Neutrophils # 5.6 K/mcL (1.6-8.9); Platelet Count 279 K/mcL (140-400); Red Blood Count 3.38 M/mcL (4.19-5.50); Red Cell Distribution Width 16.9 % (11.5-14.5); Segmented Neutrophils % 72.6 %; White Blood Count 7.8 K/mcL (4.3-11.1)
[2021-05-18 11:37] LABS: BUN/Creatinine Ratio 11 (6-26); Blood Urea Nitrogen 10 mg/dL (8-23); Calcium 8.5 mg/dL (8.6-10.3); Carbon Dioxide 26 mEq/L (23-29); Chloride 103 mEq/L (98-107); Glucose 239 mg/dL (70-105); Osmolality,Calculated 287 (280-300); Potassium 3.5 mEq/L (3.5-5.1); Sodium 135 mEq/L (136-145); eGFR For African Americans > 60 (> 60); eGFR For Non-African Americans > 60 (> 60)
[2021-05-18 14:53] VITALS: BP 135/75; PULSE 74; TEMP 97.8
[2021-05-18 15:15] VITALS: O2SAT 95
== END 2021-05-18 16:56 | DRG 480 ==
LOC: 4WAOSI → SUATTDRO 05-06 10:26
PROVIDERS: ADMIT Internal Medicine; ATTEND General Practice
PROC: ENDOEBX (2021-05-18 08:00)